=== PATIENT | male | born 1970 | race Hispanic/Latino ===

== ENCOUNTER 2018-05-15 01:16 | Observation (INO) | payer BC, OTHER ==
[2018-05-15] MEDS ORDERED: Nitroglycerin 2% Ointment 1 INCH/1 GM Packet ONE (02:22)
[2018-05-15 02:45] LABS: Bilirubin Negative (Negative); Blood, Urine Negative (Negative); Clarity CLEAR (Clear); Glucose, Urine (Dipstick) Negative (Negative); Leukocyte Negative (Negative); Nitrite Negative (Negative); Protein, Urine (Dipstick) Negative (Neg-Trace); Specific Gravity, Urine 1.016 (1.002-1.036)
[2018-05-15] MEDS ORDERED: Ondansetron HCl/PF 4 MG/2 ML Vial IVP PRN ×2 (03:19→08:37)
[2018-05-15] MEDS ORDERED: Acetaminophen 325 MG TAB PO PRN ×2 (03:19→08:37)
[2018-05-15] MEDS ORDERED: Ondansetron ODT 4 MG TAB SL PRN (03:19)
[2018-05-15 03:21] VITALS: BMI 34.1
[2018-05-15 03:21] LABS: Acetaminophen Less than 6.0 mcg/mL (10.0-30.0); Alcohol Less than 10 mg/dL (Less than 10); Salicylate Less than 8.0 mg/dL (15.0-30.0)
[2018-05-15 03:26] LABS: Troponin I Less than 0.010 ng/mL (< 0.028)
[2018-05-15 05:31] LABS: Troponin I Less than 0.010 ng/mL (< 0.028)
[2018-05-15] MEDS ORDERED: Nitroglycerin 2% Ointment 1 INCH/1 GM Packet TOP SCH (06:00)
[2018-05-15 08:28] VITALS: BP 112/58; TEMP 98.4
[2018-05-15] MEDS ORDERED: Diabetic Tussin 200 MG/10 ML UDCUP PO PRN (08:37)
[2018-05-15] MEDS ORDERED: cloNIDine 0.1 MG TAB PO PRN (08:37)
[2018-05-15] MEDS ORDERED: Nitroglycerin 0.4 MG TAB (25 Tab Bottle) SL PRN (08:37)
[2018-05-15] MEDS ORDERED: Lorazepam 1 MG TAB PO PRN (08:37)
[2018-05-15] MEDS ORDERED: Mag-Al 1200 mg/1200 mg/30 ML UDCUP PO PRN (08:37)
[2018-05-15] MEDS ORDERED: Loratadine 10 MG TAB PO PRN (08:37)
[2018-05-15] MEDS ORDERED: traMADol HCl 50 MG TAB PO PRN (08:37)
[2018-05-15] MEDS ORDERED: Calcium Carbonate 500 MG ChewTAB PO PRN (08:37)
[2018-05-15] MEDS ORDERED: hydrALAZINE 20 MG/ML VIAL SLOW IVP PRN (08:37)
[2018-05-15] MEDS ORDERED: Benzonatate 100 MG CAP PO PRN (08:37)
[2018-05-15] MEDS ORDERED: Aspirin 325 MG TAB PO SCH (09:00)
[2018-05-15 09:02] LABS: Cardiac Risk 3.8 (Less than 4.5)
[2018-05-15 09:08] LABS: Medtox Reader # READER 1; THC/Cannabinoid Screen Not Detected (NotDetected)
[2018-05-15 09:09] LABS: Amphetamine Not Detected (NotDetected); Barbiturates Screen Not Detected (NotDetected); Benzodiazepine Screen Not Detected (NotDetected); Cocaine Metabolite Screen Detected (NotDetected); Medtox Control Line Valid? VALID (VALID); Methadone Not Detected (NotDetected); Methamphetamine Not Detected (NotDetected); Opiate Screen Not Detected (NotDetected); Oxycodone Screen Not Detected (NotDetected); Phencyclidine (PCP) Not Detected (NotDetected); Tricyclic Screen Not Detected (NotDetected)
--- NOTE | 2018-05-15 12:31 | NM ---
NUCLEAR MEDICINE CARDIAC PERFUSION EXAMINATION WITH EJECTION FRACTION: HISTORY: A 47-year-old male with chest pain, coronary artery disease, and hypertension. The patient has a his tory of drug abuse and smoking. TECHNIQUE: A single day nuclear medicine cardiac perfusion examination was performed. Rest images were obtained using 9 millicuries of technetium 99m sestamibi. Stress images were obtained using 27 millicuries o f technetium 99m sestamibi and adenosine. FINDINGS: Tomographic images show no fixed or reversible perfusion defects. Gated images show normal wall w[place] on with an ejection fraction of 59%. EDV is 109 mL. LHR is 0.3. TID is 1.3. IMPRESSION: No evidence of ischemia. POS: MO
[2018-05-15] MEDS ORDERED: ADENOSINE 60 MG/20 ML VIAL ONE (13:01)
--- NOTE | 2018-05-15 14:15 | SS ---
DATE OF ADMISSION: 05/15/2018 DATE OF DISCHARGE: 05/15/2018 PRIMARY CARE PHYSICIAN: Cosme Camacho. CHIEF COMPLAINT: Chest pain. DISCHARGE DIAGNOSES: 1. Chest pain, noncardiac. Acute coronary syndrome ruled out. Most likely secondary to cocaine-ind uced coronary spasm. 2. Hypertriglyceridemia. 3. Cocaine abuse and drug abuse. DISCHARGE MEDICATION: Fish oil 1000 mg daily. HISTORY OF PRESENTING ILLNESS: Mr. Caballero is a 47-year-old male without any significant past medical history who presented to the emergency room with the above-mentioned complaint. History is mainly o btained by the patient himself. He reports that he has passed out a few months ago and was seen in some other ER. He also has been h aving left arm pain and it is going numb. He reports that he has sought care in some emergency room and was referred to Cardiology, Dr. Arias. He was supposed to undergo a stress test, but yesterd ay he started to have chest pain, so presented to the ER. His pain is more chronic in nature and he describes it as more of a left arm pain and numbness. He claims that his left arm becomes occas ionally. His symptoms are not associated with any diaphoresis, shortness of breath, dizziness, light headedness, or palpitations. He denies any other recent illnesses. On presentation to the emergency room, he was hemodynamically stable with a blood pressure 131/74, pu lse of 68, saturating 96% on room air. His initial workup included a 12-lead EKG, which was unremark able. His cardiac enzymes were checked and they were normal as well. He was given transdermal nitro glycerin and was admitted for ACS rule out. PAST MEDICAL HISTORY: 1. History of tobacco abuse. 2. History of hypertension per the patient. PAST SURGICAL HISTORY: Left knee surgery. PSYCHIATRIC HISTORY: No anxiety, no depression. SOCIAL HISTORY: He reported that he is occasional cocaine and methamphetamine user and told us that his last drug use was about 3 months ago. He smokes 1 pack of cigarettes per day and moderate alcoho l consumption. FAMILY HISTORY: No significant family history of premature coronary artery disease or stroke. REVIEW OF SYSTEMS: Twelve point review systems was done. It is negative except for those mentioned in the history and physical. ALLERGIES: BISMUTH SUBSALICYLATE. HOME MEDICATIONS: None. LABORATORY DATA: Cardiac enzymes, troponin less than 0.010 x3. Triglycerides 184, otherwise normal lipid panel. Urinalysis negative. Urine toxicology positive for cocaine. Twelve lead EKG by my rev iew shows normal sinus rhythm without any acute ST or T-wave changes. Nuclear medicine stress test d one since admission is negative for any evidence of reversible ischemia or scar. EF estimated at 59% . PHYSICAL EXAMINATION: VITAL SIGNS: Most recent vital signs; temperature 98.4, pulse of 70, respirations 16, saturating 96% on room air, blood pressure 112/58. GENERAL: No acute distress, awake, alert, and oriented x3. His significant other is lying in the be d with him. HEENT: Mucous membrane is moist and pink. No oropharyngeal exudate or erythema. Head is normocepha lic, atraumatic. Pupils equal, reactive to light and accommodation. Extraocular movement intact. NECK: Supple without any lymphadenopathy, JVD or bruit. LUNGS: Clear to auscultation without any wheezing, rales or rhonchi. HEART: Rhythm is regular without any murmur, rubs or gallops. ABDOMEN: Soft, nontender, nondistended, positive bowel sounds. EXTREMITIES: Free of any cyanosis, clubbing, or edema. NEUROLOGIC: Nonfocal. SKIN: Free of any rashes or bruises. Feels warm and dry to touch. PSYCHIATRIC: Normal affect. ASSESSMENT AND PLAN: 1. Chest pain. No evidence of acute coronary syndrome with a negative stress test and negative seri al cardiac enzymes and normal EKG. Most likely it was secondary to coronary spasm induced by cocaine . Currently, he is symptom free. He was counseled extensively about tobacco and cocaine abuse, but at this time, he is not amenable to counseling. He states that life is too short anyways. He is ins tructed to seek child guidance counselor through his primary care physician. He is instructed to follow up with Dr. See hutchins with the results of the stress test in case he needs a cardiac catheterization for further r isk stratification. At this time, he is not having any ACS. He is being started on fish oil for his high triglyceride and heart healthy diet and he was educated about that. 2. Hypertriglyceridemia. Start him on fish oil as above. 3 Cocaine abuse. The patient extensively counseled, not amenable to counseling at this time. 4. Tobacco abuse. Once again, the ill effects were discussed with the patient and he is not enthusi astic about quitting. 5. Left arm pain and numbness, most likely he is having cervical myelopathy. The patient is instruc noel to follow up with primary care physician and eventually a neurosurgeon if his symptoms get worse. DISPOSITION: ACS has been ruled out. The patient will be discharged. The patient is hemodynamicall y stable and has been evaluated by myself as above prior to discharge.
--- NOTE | 2018-05-17 15:51 | EKG ---
Test Reason : Blood Pressure : / mmHG Vent. Rate : 071 BPM Atrial Rate : 071 BPM P-R Int : 130 ms QRS Dur : 088 ms QT Int : 410 ms P-R-T Axes : 042 072 010 degrees QTc Int : 445 ms Normal sinus rhythm Normal ECG Confirmed by HALI TOTH, JERSEY ([id number]), make up editor FREDDIE COTE ([id number]) on 05/17/2018 3:50:41 PM Referred By: Confirmed By:JERSEY LAL MD
== END 2018-05-15 14:04 | disposition home or self-care (01) ==
LOC: ERS 01:16 → 2SW 03:00
PROVIDERS: ADMIT Hospitalist; ATTEND Hospitalist
DX: R07.89 Other chest pain (principal); E78.1 Pure hyperglyceridemia; I10 Essential (primary) hypertension; F17.210 Nicotine dependence, cigarettes, uncomplicated; F14.10 Cocaine abuse, uncomplicated; F15.10 Other stimulant abuse, uncomplicated; R20.0 Anesthesia of skin; M79.602 Pain in left arm; Z88.8 Allergy status to other drugs, medicaments and biological substances
CPT/HCPCS: 36415; 78452; 80061; 80306; 80307; 81003; 84484; 93005; 93017; A9500; G0378; J0153

== ENCOUNTER 2018-06-27 04:52 | Emergency (ER) | payer BC, OTHER ==
[2018-06-27] MEDS ORDERED: Lidocaine 1% w/Epinephrine 1:100K 20 ML VIAL ONE (05:03)
[2018-06-27] MEDS ORDERED: Bacitracin Zinc 1 Packet ONE (05:52)
== END 2018-06-27 06:10 | disposition home or self-care (01) ==
LOC: ERS 04:52
DX: S21.212A Laceration without foreign body of left back wall of thorax without penetration into thoracic cavity, initial encounter (principal); I10 Essential (primary) hypertension; F17.210 Nicotine dependence, cigarettes, uncomplicated; Z79.82 Long term (current) use of aspirin; W22.8XXA Striking against or struck by other objects, initial encounter
CPT/HCPCS: 12004; J2001

== ENCOUNTER 2024-08-01 11:25 | Inpatient (IN) | payer OTHER ==
[2024-08-01] MEDS ORDERED: Bupivacaine PF 0.5% 30 ML VIAL ONE (12:47)
[2024-08-01] MEDS ORDERED: EPINEPHrine 1 MG/ML VIAL ONE (12:47)
[2024-08-01] MEDS ORDERED: Ketorolac Tromethamine 30 MG (1 mL) VIAL ONE (12:51)
[2024-08-01] MEDS ORDERED: PROPOFOL 20 ML ONE (13:01)
[2024-08-01] MEDS ORDERED: fentaNYL 50 mcg/mL 1 mL Vial ONE ×2 (13:01)
[2024-08-01] MEDS ORDERED: Lidocaine 1% PF 5 ML VIAL ONE (13:02)
[2024-08-01] MEDS ORDERED: Rocuronium Bromide 10 MG/ML (10ML VIAL) ONE (13:02)
[2024-08-01] MEDS ORDERED: Ondansetron ODT 4 MG TAB PO PRN (14:40)
[2024-08-01] MEDS ORDERED: hydrALAZINE 20 MG/ML VIAL SLOW IVP PRN (14:40)
[2024-08-01] MEDS: Acetaminophen 500 MG TAB PO SCH (18:10)
[2024-08-01] MEDS: Ketorolac Tromethamine 30 MG (1 mL) VIAL IVP SCH (18:11)
[2024-08-01] MEDS: Lisinopril 10 MG TAB PO SCH (18:13)
[2024-08-01] MEDS: Lactated Ringer's 1,000 ML IV SCH (18:19)
[2024-08-01] MEDS: Famotidine 20 MG TAB PO SCH (20:45)
[2024-08-01] MEDS: Morphine 4 MG/ML VIAL SLOW IVP PRN (20:45)
[2024-08-01] MEDS: Enoxaparin 40 MG (0.4 mL) SYRINGE SC SCH (20:45)
[2024-08-01] MEDS: TETANUS, DIPHTHERIA TOX,ADULT (TDVAX) 0.5 ML VIAL IM ONE (22:05)
[2024-08-01 22:10] VITALS: BMI 36.1
[2024-08-01] MEDS: Ondansetron PF 4 MG/2 ML Vial IVP PRN (23:00)
[2024-08-02] MEDS ORDERED: Regadenoson 0.4 MG/5 ML SYRINGE ONE (08:49)
[2024-08-02] MEDS: Lisinopril 10 MG TAB PO SCH (12:12)
[2024-08-02] MEDS: LevoFLOXacin 750 mg/D5W 750 MG in Premix 1 BAG IVPB SCH (12:14)
[2024-08-02] MEDS ORDERED: Bupivacaine PF 0.5% 30 ML VIAL ONE (14:14)
[2024-08-02] MEDS ORDERED: EPINEPHrine 1 MG/ML VIAL ONE (14:14)
[2024-08-02] MEDS ORDERED: PROPOFOL 20 ML ONE (14:33)
[2024-08-02] MEDS ORDERED: Lidocaine 1% PF 5 ML VIAL ONE (14:33)
[2024-08-02] MEDS ORDERED: fentaNYL 50 mcg/mL 1 mL Vial ONE ×3 (14:33→17:27)
[2024-08-02] MEDS ORDERED: Rocuronium Bromide 10 MG/ML (10ML VIAL) ONE (14:33)
[2024-08-02] MEDS ORDERED: Midazolam HCl 2 mg/2 ml Vial ONE (14:35)
[2024-08-02] MEDS ORDERED: Ondansetron PF 4 MG/2 ML Vial ONE (14:39)
[2024-08-02] MEDS ORDERED: Dexamethasone 20 MG/5 ML VIAL ONE (14:39)
[2024-08-02] MEDS ORDERED: PHENYLEPHRINE-NS 100 MCG/ML 10 ML SYRINGE ONE (14:54)
[2024-08-02] MEDS ORDERED: SUGAMMADEX SODIUM 200 MG/2 ML VIAL ONE (15:01)
[2024-08-02] MEDS ORDERED: Ondansetron HCl/PF 4 MG/2 ML Vial IVP PRN (15:57)
[2024-08-02] MEDS ORDERED: Promethazine HCl 25 MG/ML VIAL IM PRN (15:57)
[2024-08-02] MEDS: traMADol HCl 50 MG TAB PO PRN (20:30)
[2024-08-03 06:49] LABS: #Basophils Less than 0.03 10x3/uL (0.0-0.2); #Eosinphils Less than 0.03 10x3/uL (0.0-0.7); %Basophils 0.1 % (0.0-1.0); %Eosinophils 0.1 % (0.0-10.0); %Lymphocytes 12.5 % (21.0-51.0); %Monocytes 5.8 % (0.0-10.0); %Neutrophils 80.6 % (42.0-75.0); Hematocrit 39.5 % (42.0-52.0); Mean Corpuscular HGB CONC 32.9 g/dL (32.0-36.0); Mean Corpuscular Hemoglobin 30.2 pg (27.0-31.0); Mean Corpuscular Volume 91.6 fL (78.0-98.0); Platelet Count 263 10x3/uL (130-400); RBC Distribution Width 12.8 % (11.5-14.5); Red Blood Cell (RBC) Count 4.31 mill/uL (4.70-6.10)
[2024-08-03 07:22] LABS: ALT (SGPT) 637 U/L (8-55); AST (SGOT) 328 U/L (5-34); Albumin 3.4 g/dL (3.5-5.0); Alkaline Phosphatase 192 U/L (40-110); Anion Gap 12 mmol/L (10-20); BUN (Urea Nitrogen) 15 mg/dL (8.4-25.7); Bilirubin, Total 1.3 mg/dL (0.2-1.2); Calc. Creatinine Clearance 138 mL/min (70-130); Carbon Dioxide 25 mmol/L (22-29); Chloride 103 mmol/L (98-107); Estimated GFR 104; Globulin 3.2 g/dL (2.4-3.5); Glucose 100 mg/dL (70-105); Potassium 4.3 mmol/L (3.5-5.1); Protein, Total 6.6 g/dL (6.0-8.3); Sodium 136 mmol/L (136-145)
[2024-08-04 07:53] LABS: #Basophils 0.03 10x3/uL (0.0-0.2); %Basophils 0.4 % (0.0-1.0); %Eosinophils 1.6 % (0.0-10.0); %Lymphocytes 18.9 % (21.0-51.0); %Monocytes 8.3 % (0.0-10.0); %Neutrophils 69.9 % (42.0-75.0); Hematocrit 39.1 % (42.0-52.0); Hemoglobin 12.8 g/dL (14.0-18.0); Mean Corpuscular HGB CONC 32.7 g/dL (32.0-36.0); Mean Corpuscular Hemoglobin 30.8 pg (27.0-31.0); Mean Platelet Volume 10.2 fL (7.4-10.4); Platelet Count 225 10x3/uL (130-400); RBC Distribution Width 13.1 % (11.5-14.5); Red Blood Cell (RBC) Count 4.16 mill/uL (4.70-6.10)
[2024-08-04 08:12] LABS: ALT (SGPT) 423 U/L (8-55); AST (SGOT) 132 U/L (5-34); Albumin 3.2 g/dL (3.5-5.0); Alkaline Phosphatase 163 U/L (40-110); Anion Gap 10 mmol/L (10-20); BUN (Urea Nitrogen) 17 mg/dL (8.4-25.7); Bilirubin, Total 0.9 mg/dL (0.2-1.2); Calc. Creatinine Clearance 145 mL/min (70-130); Calcium 8.7 mg/dL (7.8-10.44); Carbon Dioxide 26 mmol/L (22-29); Chloride 105 mmol/L (98-107); Estimated GFR 106; Globulin 3.2 g/dL (2.4-3.5); Glucose 82 mg/dL (70-105); Protein, Total 6.4 g/dL (6.0-8.3); Sodium 137 mmol/L (136-145)
[2024-08-05 10:06] LABS: #Basophils 0.03 10x3/uL (0.0-0.2); %Basophils 0.4 % (0.0-1.0); %Eosinophils 1.2 % (0.0-10.0); %Lymphocytes 27.4 % (21.0-51.0); %Monocytes 7.3 % (0.0-10.0); %Neutrophils 61.8 % (42.0-75.0); Hematocrit 40.2 % (42.0-52.0); Hemoglobin 13.1 g/dL (14.0-18.0); Mean Corpuscular HGB CONC 32.6 g/dL (32.0-36.0); Mean Corpuscular Hemoglobin 30.8 pg (27.0-31.0); Mean Corpuscular Volume 94.4 fL (78.0-98.0); Mean Platelet Volume 10.3 fL (7.4-10.4); Platelet Count 245 10x3/uL (130-400); Red Blood Cell (RBC) Count 4.26 mill/uL (4.70-6.10)
[2024-08-05 10:16] LABS: ALT (SGPT) 292 U/L (8-55); AST (SGOT) 60 U/L (5-34); Albumin 3.4 g/dL (3.5-5.0); Alkaline Phosphatase 159 U/L (40-110); Anion Gap 10 mmol/L (10-20); BUN (Urea Nitrogen) 10 mg/dL (8.4-25.7); Calc. Creatinine Clearance 143 mL/min (70-130); Calcium 9.3 mg/dL (7.8-10.44); Carbon Dioxide 28 mmol/L (22-29); Chloride 104 mmol/L (98-107); Estimated GFR 105; Globulin 3.6 g/dL (2.4-3.5); Glucose 87 mg/dL (70-105); Potassium 3.8 mmol/L (3.5-5.1); Sodium 138 mmol/L (136-145)
[2024-08-05] MEDS ORDERED: CEFAZOLIN 2 GM VIAL ONE (12:49)
[2024-08-05] MEDS ORDERED: Sodium Chloride 0.9% 100 ML ONE (12:49)
[2024-08-05] MEDS ORDERED: Indomethacin 50 MG SUPP ONE (13:00)
[2024-08-05] MEDS ORDERED: Iopamidol 30 ML ONE (13:01)
[2024-08-05] MEDS ORDERED: fentaNYL PF 100 MCG/2 ML SYRINGE ONE (13:16)
[2024-08-05] MEDS ORDERED: Ondansetron HCl/PF 4 MG/2 ML Vial IVP PRN (13:48)
[2024-08-05] MEDS ORDERED: Glycopyrrolate 0.2 MG/ML 5 ML SYRINGE ONE (13:48)
[2024-08-05] MEDS ORDERED: Promethazine HCl 25 MG/ML VIAL IM PRN (13:48)
[2024-08-05] MEDS ORDERED: PHENYLEPHRINE-NS 100 MCG/ML 10 ML SYRINGE ONE (13:48)
[2024-08-05] MEDS ORDERED: SUGAMMADEX SODIUM 200 MG/2 ML VIAL ONE (14:09)
[2024-08-06 05:08] LABS: #Basophils Less than 0.03 10x3/uL (0.0-0.2); %Basophils 0.2 % (0.0-1.0); %Eosinophils 0.9 % (0.0-10.0); %Lymphocytes 21.9 % (21.0-51.0); %Monocytes 8.1 % (0.0-10.0); %Neutrophils 67.5 % (42.0-75.0); Hematocrit 36.6 % (42.0-52.0); Hemoglobin 11.9 g/dL (14.0-18.0); Mean Corpuscular HGB CONC 32.5 g/dL (32.0-36.0); Mean Corpuscular Hemoglobin 30.1 pg (27.0-31.0); Mean Corpuscular Volume 92.7 fL (78.0-98.0); Mean Platelet Volume 10.5 fL (7.4-10.4); Platelet Count 245 10x3/uL (130-400); RBC Distribution Width 12.6 % (11.5-14.5); Red Blood Cell (RBC) Count 3.95 mill/uL (4.70-6.10)
[2024-08-06 05:35] LABS: ALT (SGPT) 202 U/L (8-55); AST (SGOT) 42 U/L (5-34); Albumin 3.1 g/dL (3.5-5.0); Alkaline Phosphatase 138 U/L (40-110); Anion Gap 11 mmol/L (10-20); BUN (Urea Nitrogen) 13 mg/dL (8.4-25.7); Bilirubin, Total 0.6 mg/dL (0.2-1.2); Calc. Creatinine Clearance 148 mL/min (70-130); Carbon Dioxide 27 mmol/L (22-29); Chloride 103 mmol/L (98-107); Estimated GFR 106; Globulin 3.4 g/dL (2.4-3.5); Glucose 100 mg/dL (70-105); Potassium 3.9 mmol/L (3.5-5.1); Protein, Total 6.5 g/dL (6.0-8.3); Sodium 137 mmol/L (136-145)
[2024-08-06] MEDS: Polyethylene Glycol 3350 17 GM Packet PO SCH (08:56)
[2024-08-06] MEDS: Senokot S 8.6-50 MG TAB PO SCH (08:56)
[2024-08-07 11:20] VITALS: BP 124/76; TEMP 98.6
== END 2024-08-07 11:58 | disposition home or self-care (01) | DRG 419 ==
LOC: SDC 11:25 → 2SW 14:40 → SURG A 08-02 18:03 → OBSVTOIN 08-03 13:13
PROVIDERS: ADMIT Specialist; ATTEND Specialist
PROC: 0FT44ZZ Resection of Gallbladder, Percutaneous Endoscopic Approach (ICD-10-PCS; principal; 2024-08-02)
PROC: 0F798ZZ Dilation of Common Bile Duct, Via Natural or Artificial Opening Endoscopic (ICD-10-PCS; 2024-08-05)
DX: K80.12 Calculus of gallbladder with acute and chronic cholecystitis without obstruction (principal); F17.210 Nicotine dependence, cigarettes, uncomplicated; K83.8 Other specified diseases of biliary tract; I10 Essential (primary) hypertension; Z95.5 Presence of coronary angioplasty implant and graft; Z79.899 Other long term (current) drug therapy; Z88.8 Allergy status to other drugs, medicaments and biological substances
CPT/HCPCS: 36415; 74330; 76705; 78226; 78452; 80053; 85025; 88304; 93017; A9502; A9537; C1889; C2625; J0171; J0665; J1100; J1650; J1885; J1956; J2250; J2272; J2405; J2704; J2785; J3010; J7120; Q9967

== ENCOUNTER 2024-09-22 06:27 | Day surgery (SDC) | payer OTHER ==
[2024-09-21 10:32] VITALS: BMI 34.9
[2024-09-22] MEDS ORDERED: SUCCINYLCHOLINE/SOD CL,ISO/PF 200 MG/10 ML SYRINGE FS ONE (08:16)
[2024-09-22] MEDS ORDERED: fentaNYL 50 mcg/mL 1 mL Vial ONE (08:16)
[2024-09-22] MEDS ORDERED: Indomethacin 50 MG SUPP ONE (08:27)
[2024-09-22] MEDS ORDERED: Iopamidol 15 ML ONE (08:27)
[2024-09-22] MEDS ORDERED: Ondansetron PF 4 MG/2 ML Vial ONE (08:36)
[2024-09-22] MEDS ORDERED: Dexamethasone 4 mg/ml Vial ONE (08:36)
[2024-09-22] MEDS ORDERED: PHENYLEPHRINE-NS 100 MCG/ML 10 ML SYRINGE ONE (08:36)
[2024-09-22] MEDS ORDERED: Sodium Chloride 0.9% 0 ML ONE (08:37)
[2024-09-22] MEDS ORDERED: cefTRIAXone (ROCEPHIN) 1 GM VIAL ONE (08:37)
[2024-09-22] MEDS ORDERED: Midazolam HCl 2 mg/2 ml Vial ONE (08:40)
[2024-09-22] MEDS ORDERED: PROPOFOL 200 MG/20 ML VIAL ONE (08:55)
[2024-09-22] MEDS ORDERED: Glycopyrrolate 0.2 MG/ML 5 ML SYRINGE ONE (08:55)
[2024-09-22] MEDS ORDERED: Albuterol HFA (OR) 200 PUFF INH ONE ×2 (08:55→09:38)
[2024-09-22] MEDS ORDERED: Lidocaine 1% PF 5 ML VIAL ONE (08:55)
== END 2024-09-22 11:30 | disposition home or self-care (01) ==
LOC: SDC 06:27
PROVIDERS: ATTEND Internal Medicine Gastroenterology
PROC: 0FPB8DZ Removal of Intraluminal Device from Hepatobiliary Duct, Via Natural or Artificial Opening Endoscopic (ICD-10-PCS; principal; 2024-09-22)
DX: K91.89 Other postprocedural complications and disorders of digestive system (principal); I10 Essential (primary) hypertension; F17.200 Nicotine dependence, unspecified, uncomplicated; F12.90 Cannabis use, unspecified, uncomplicated; F14.90 Cocaine use, unspecified, uncomplicated; Z90.49 Acquired absence of other specified parts of digestive tract
CPT/HCPCS: 74330; J0696; J1100; J2250; J2405; J3010; Q9967